=== PATIENT | male | born 1985 | race African-American/Black ===

== ENCOUNTER 2022-01-16 21:13 | Emergency (ER) | payer MEDICAID, OTHER ==
[~2022-01-16] VITALS: Ht 190.5 cm; Wt 95.0 kg
[2022-01-16 21:27] VITALS: BP 133/87
[2022-01-16] MEDS ORDERED: IBUP-2029 MT (22:15)
[2022-01-16] MEDS ORDERED: CYCL25PO15 MT (22:15)
[2022-01-16] MEDS ORDERED: KETOROLAC 60MG/2ML VIAL IM ONE (22:15)
== END 2022-01-16 22:35 | disposition home or self-care (01) ==
LOC: ER 21:13
DX: M54.59 Other low back pain (principal); M79.604 Pain in right leg
CPT/HCPCS: 96372; 99283; J1885

== ENCOUNTER 2022-08-23 19:55 | Emergency (ER) | payer MEDICAID, OTHER ==
[~2022-08-23] VITALS: Ht 190.5 cm; Wt 207.0 kg
[~2022-08-23 19:55] MED LIST: CYCL25PO15 MT; IBUP-2029 MT
[2022-08-23] MEDS ORDERED: IBUPROFEN 400MG TABLET PO ONE (20:45)
[2022-08-23] MEDS ORDERED: IBUP-2028 MT (22:30)
[2022-08-23 22:40] VITALS: BP 123/82
== END 2022-08-23 22:53 | disposition home or self-care (01) ==
LOC: ER 20:03
DX: S92.351A Displaced fracture of fifth metatarsal bone, right foot, initial encounter for closed fracture (principal); X58.XXXA Exposure to other specified factors, initial encounter; Y93.67 Activity, basketball; Y92.89 Other specified places as the place of occurrence of the external cause; Y99.8 Other external cause status
CPT/HCPCS: 29515; 73560; 73610; 73630; 99284; Z7610

== ENCOUNTER 2023-06-13 08:20 | Emergency (ER) | payer OTHER ==
[~2023-06-13] VITALS: Ht 188 cm; Wt 81.0 kg
[~2023-06-13 08:20] MED LIST changes: +IBUP-2028 MT
[2023-06-13 08:24] VITALS: O2SAT 100
[2023-06-13] MEDS: CYCLOBENZAPRINE 10MG TABLET PO SCH (10:00)
[2023-06-13 10:17] LABS: BASOPHILS % 0.5 % (0.0-2.0); EOSINOPHILS % 2.5 % (0.0-5.0); HEMATOCRIT. 43.3 % (42.0-52.0); HEMOGLOBIN. 14.3 g/dL (14.0-18.0); LYMPHOCYTES % 16.2 % (20.0-50.0); MEAN CORPUSCULAR HEMOGLOBIN 27.4 pg (28.0-32.0); MEAN CORPUSCULAR HGB CONC 33.1 g/dL (31.0-37.0); MEAN CORPUSCULAR VOLUME 82.9 fL (80.0-94.0); MEAN PLATELET VOLUME 8.1 fl (7.4-10.4); NEUTROPHILS % 73.8 % (40.0-76.0); PLATELET 224 x1000/uL (130-400); RED BLOOD CELL COUNT 5.23 mill/uL (4.7-6.1); RED CELL DISTRIBUTION WIDTH 13.4 % (11.6-14.6); WHITE BLOOD COUNT 7.1 x1000/uL (4.5-11.0)
[2023-06-13 10:29] LABS: CLARITY URINE CLEAR (CLEAR); COLOR URINE YELLOW (YELLOW); GLUCOSE URINE NEGATIVE (NEGATIVE); KETONES URINE NEGATIVE (NEGATIVE); LEUKOCYTE ESTERASE URINE NEGATIVE (NEGATIVE); NITRITE URINE NEGATIVE (NEGATIVE); OCCULT BLOOD URINE NEGATIVE (NEGATIVE); PH URINE 6.5 (4.5-8.0); PROTEIN URINE NEGATIVE (NEGATIVE); SPECIFIC GRAVITY URINE 1.014 (1.005-1.030)
[2023-06-13] MEDS: KETOROLAC 30MG/ML VIAL IV STA (10:32)
[2023-06-13] MEDS: MORPHINE SULFATE 4 MG/ML CPJ (NOT FOR IM USE) IV STA (10:32)
[2023-06-13 10:35] LABS: ALANINE AMINOTRANSFERASE 9 IU/L (10-49); ALBUMIN 4.3 g/dL (3.2-4.8); ASPARTATE AMINOTRANSFERASE 15 IU/L (<34); CALCIUM 9.2 mg/dL (8.7-10.4); CARBON DIOXIDE 31 mEq/L (21-32); CHLORIDE 105 mEq/L (98-107); CREATININE 0.9 mg/dL (0.6-1.3); GLUCOSE 92 mg/dL (70-105); INR 0.9; POTASSIUM 3.7 mEq/L (3.5-5.1); PROTEIN TOTAL 7.1 g/dL (6.0-8.3); PROTHROMBIN TIME 10.5 sec (9.6-11.0); SODIUM 140 mEq/L (136-145); UREA NITROGEN BLOOD 9 mg/dL (9-23)
[2023-06-13] MEDS ORDERED: HYDR-4001 MT (12:41)
[2023-06-13 13:20] VITALS: BP 139/82; PULSE 75; RESP 20; TEMP 98
== END 2023-06-13 13:23 | disposition home or self-care (01) ==
LOC: ER 08:31
DX: M51.26 Other intervertebral disc displacement, lumbar region (principal)
CPT/HCPCS: 80053; 81003; 85025; 85610; 36415; 72148; 96374; 96375; 99285; J1885; J2270; Z7610